=== PATIENT | female | born 1985 | race Caucasian/White ===

== ENCOUNTER 2019-04-20 21:52 | Emergency (ER) | payer OTHER ==
[2019-04-20 22:42] VITALS: BMI 46.5
[2019-04-21] MEDS ORDERED: SODIUM CHLORIDE 0.9% 500 ML INFUS.BAG IV ONE (00:07)
[2019-04-21] MEDS ORDERED: ONDANSETRON 4 MG/2 ML VIAL IVPUSH ONE (00:07)
[2019-04-21] MEDS ORDERED: ACETAMINOPHEN 1000 MG/100 ML VIAL (NON FORMULARY) IVPB ONE (00:07)
--- NOTE | 2019-04-21 00:08 | PDOC ---
History of Present Illness <Bijal Dawkins - Last Filed: 04/21/19 02:04> - History of Present Illness Initial Comments: Ms. Saini is a 33 y/o female with PMH significant for asthma presenting today with epigastric abdominal pain, nausea and vomiting x5, chills without fever. She has been having this pain for several years now. Reports that she was told she had gallstones at [facility] and given a referral for a surgeon, but never followed up. She started having abdominal pain, nausea, and vomiting again over the past couple of days. Did not eat anything for dinner but had cheese for breakfast. Describes the pain as sharp and intermittent. No chest pain/shortness of breath. No dysuria/diarrhea. No leg swelling. <Ruperto Newman - Last Filed: 04/21/19 22:30> - General Chief Complaint: Pain Stated Complaint: PAIN Time Seen by Provider: 04/20/19 22:44 Past History <JuanchoBijalgilberto Sheth - Last Filed: 04/21/19 02:04> - Past Medical History Asthma: Yes (last attack 8 months ago no meds) Cancer: No Cardiac Disorders: No COPD: No Diabetes: No HTN: No Seizures: No Thyroid Disease: No - Reproductive History (#): 1 Para: 0 Therapeutic (s) & number: Yes (1) Spontaneous : 0 - Psycho Social/Smoking Cessation Hx Smoking Status: No Smoking History: Never smoked Years of Tobacco Use: 0 Number of Cigarettes Smoked Daily: 0 Cigars Per Day: 0 Hx Alcohol Use: No Drug/Substance Use Hx: No Substance Use Type: None Hx Substance Use Treatment: No <Ruperto Newman - Last Filed: 04/21/19 22:30> - Past Medical History Allergies/Adverse Reactions: Allergies Allergy/AdvReac Type Severity Reaction Status Date / Time No Known Allergies Allergy Verified 04/12/14 01:29 Home Medications: Ambulatory Orders Vitamins (Sjr) - 1 tab PO DAILY 04/12/14 Abd/GI Specific PMHX - Complaint Specific PMHX GERD: No GI Ulcer Disease: No <Ruperto Newman - Last Filed: 04/21/19 22:30> Review of Systems - Review of Systems Comments:: GENERAL/CONSTITUTIONAL: No fever. Reports chills. No weakness._ HEAD, EYES, EARS, NOSE AND THROAT: No change in vision. No change in hearing. No sore throat._ CARDIOVASCULAR: No chest pain or shortness of breath_ RESPIRATORY: Denies cough, hemoptysis_ GASTROINTESTINAL: Reports abdominal pain, nausea, vomiting. GENITOURINARY: No dysuria, frequency, or change in urination._ MUSCULOSKELETAL: No joint or muscle swelling or pain. No neck or back pain._ SKIN: No rash_ NEUROLOGIC: No headache, vertigo, loss of consciousness, or change in strength/ sensation._ ENDOCRINE: No increased thirst. No abnormal weight change_ HEMATOLOGIC/LYMPHATIC: No anemia, easy bleeding, or history of blood clots._ ALLERGIC/IMMUNOLOGIC: No hives or skin allergy._ <Ruperto Newman - Last Filed: 04/21/19 22:30> *Physical Exam - Vital Signs Last Vital Signs Temp Pulse Resp BP Pulse Ox 98.1 F 91 H 20 135/78 100 04/20/19 22:30 04/20/19 22:30 04/20/19 22:30 04/20/19 22:30 04/20/19 22:30 <Bijal Dawkins - Last Filed: 04/21/19 02:04> - Vital Signs Last Vital Signs Temp Pulse Resp BP Pulse Ox 98.1 F 91 H 20 135/78 100 04/20/19 22:30 04/20/19 22:30 04/20/19 22:30 04/20/19 22:30 04/20/19 22:30 - Physical Exam GENERAL: Awake, alert, and oriented to person/place/time, in no acute distress_ HEAD: No signs of trauma, normoc ephalic, atraumatic _ EYES: PERRLA, EOMI, sclera anicteric, conjunctiva clear_ ENT: Hearing grossly normal, nares patent, oropharynx clear without exudates. No uvular deviation. Moist mucosa_ NECK: Normal ROM, supple, no lymphadenopathy, JVD, or masses_ LUNGS: No distress, speaks in full sentences, clear to auscultation bilaterally _ HEART: Regular rate and rhythm, normal S1 and S2, no murmurs appreciated, peripheral pulses normal and equal bilaterally._ ABDOMEN: Soft, epigastric TTP, normoactive bowel sounds. No guarding, no rebound. No masses_ EXTREMITIES: Normal inspection, Normal range of motion, no edema. No clubbing or cyanosis_ NEUROLOGICAL: Cranial nerves II through XII grossly intact. Normal speech, normal gait, no focal sensorimotor deficits _ SKIN: Warm, Dry, normal turgor, no rashes or lesions noted_ <Ruperto Newman - Last Filed: 04/21/19 22:30> ED Treatment Course - LABORATORY CBC & Chemistry Diagram: 04/21/19 00:40 04/21/19 00:40 - RADIOLOGY Radiology Studies Ordered: Category Date Time Status CHEST PA & LAT [RAD] Stat Radiology 04/20/19 23:24 Taken ABDOMEN US -LIMITED [US] Stat Ultrasound 04/20/19 23:57 Ordered <Ruperto Newman - Last Filed: 04/21/19 22:30> Medical Decision Making - Medical Decision Making 04/21/19 00:14 33F hx of asthma presenting with abdominal pain, nausea, vomiting today. Hx of cholelithiasis. -cbc, cmp -ekg, trop, cxr -US abd -upreg, ua, ucx 04/21/19 00:36 EKG shows NSR, 76 bpm, no ST elevation/depression, QTc 452, no axis deviation. 04/21/19 0300 Labs reviewed. Will plan to obtain CT abd w/ pelvis and US abd in the morning. Laboratory Tests 04/21/19 04/21/19 04/21/19 00:40 00:40 00:40 WBC 13.1 H RBC 4.41 Hgb 11.5 Hct 36.7 D MCV 83.2 MCH 26.1 MCHC 31.4 L RDW 14.0 Plt Count 299 D MPV 9.7 Absolute Neuts (auto) 10.2 H Neutrophils % 77.6 Lymphocytes % 17.1 D Monocytes % 4.3 Eosinophils % 0.6 Basophils % 0.4 Nucleated RBC % 0 Sodium 145 Potassium 3.2 L Chloride 114 H Carbon Dioxide 26 Anion Gap 5 L BUN 9.6 Creatinine 0.4 L Est GFR (CKD-EPI)AfAm 160.86 Est GFR (CKD-EPI)NonAf 138.79 Random Glucose 68 L Calcium 7.2 L Total Bilirubin 0.3 AST 11 L ALT 13 Alkaline Phosphatase 56 Creatine Kinase 116 Troponin I < 0.02 Total Protein 5.7 L Albumin 2.6 L Lipase Urine Color Urine Appearance Urine pH Ur Specific [place] Urine Protein Urine Glucose (UA) Urine Ketones Urine Blood Urine Nitrite Urine Bilirubin Urine Urobilinogen Ur Leukocyte Esterase Urine HCG, Qual 04/21/19 04/21/19 04/21/19 00:40 00:40 00:40 WBC RBC Hgb Hct MCV MCH MCHC RDW Plt Count MPV Absolute Neuts (auto) Neutrophils % Lymphocytes % Monocytes % Eosinophils % Basophils % Nucleated RBC % Sodium Potassium Chloride Carbon Dioxide Anion Gap BUN Creatinine Est GFR (CKD-EPI)AfAm Est GFR (CKD-EPI)NonAf Random Glucose Calcium Total Bilirubin AST ALT Alkaline Phosphatase Creatine Kinase Troponin I Total Protein Albumin Lipase 85 Urine Color Yellow Urine Appearance Clear Urine pH 8.0 D Ur Specific [place] 1.022 Urine Protein Negative Urine Glucose (UA) Negative Urine Ketones Negative Urine Blood Negative Urine Nitrite Negative Urine Bilirubin Negative Urine Urobilinogen 0.2 Ur Leukocyte Esterase Negative Urine HCG, Qual Negative 04/21/19 07:00 Pt signed out to Dr. Elen Guerrero. <Ruperto Newman - Last Filed: 04/21/19 22:30> Discharge <Bijal Dawkins - Last Filed: 04/21/19 02:04> - Discharge Information Problems reviewed: Yes - Admission No <Ruperto Newman - Last Filed: 04/21/19 22:30> - Discharge Information Clinical Impression/Diagnosis: Gallstone Qualifiers: Cholecystitis presence: without cholecystitis Biliary obstruction: without biliary obstruction Qualified Code(s): K80.20 - Calculus of gallbladder without cholecystitis without obstruction Condition: Stable Disposition: HOME - Follow up/Referral Referrals: Tina Quiñonez MD [Staff Physician] - Estrella Cleveland MD [Staff Physician] - Tyler Mayo MD [Staff Physician] - - Patient Discharge Instructions Patient Printed Discharge Instructions: DI for Gallstones Additional Instructions: Gallstones are stones in the gallbladder that can block the gallbladder from draining bile. This pain is usually located on the right side under your rib cage. This pain can radiate to the back or right shoulder. You can also develop nausea & vomiting. Rare complications that can occur include infections, gallbladder tears, and pancreas inflammation. You can help prevent gallstone formation by keeping a healthy weight - overweight people are more likely to get gallstones. However, losing weight too quickly can lead to gallstone formation so speak with your doctor before starting any dietary regimen. 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 Please return to the ED if you have severe pain not controlled with over the counter medications, have severe nausea/ vomiting, or experience other very concerning symptoms. - Post Discharge Activity Work/Back to School Note: Back to Work
[2019-04-21 02:21] LABS: BASO % 0.4 % (0-2.0); EOS % 0.6 % (0-4.5); HEMATOCRIT 36.7 % (32.4-45.2); HEMOGLOBIN 11.5 GM/dL (10.7-15.3); LYMPH % 17.1 % (8-40); MCH 26.1 pg (25.7-33.7); MCHC 31.4 g/dl (32.0-36.0); MEAN CELL VOLUME 83.2 fl (80-96); MEAN PLT VOLUME 9.7 fl (7.5-11.1); MONO % 4.3 % (3.8-10.2); NEUT % 77.6 % (42.8-82.8); PLATELET COUNT 299 K/MM3 (134-434); RBC 4.41 M/mm3 (3.60-5.2); WHITE BLOOD COUNT 13.1 K/mm3 (4.0-10.0)
[2019-04-21 02:22] LABS: URINE APPEARANCE CLEAR; URINE BILIRUBIN NEGATIVE (NEGATIVE); URINE COLOR YELLOW; URINE GLUCOSE (UA) NEGATIVE (NEGATIVE); URINE KETONE NEGATIVE (NEGATIVE); URINE LEUK ESTERASE NEGATIVE (NEGATIVE); URINE NITRITE NEGATIVE (NEGATIVE); URINE PROTEIN NEGATIVE (NEGATIVE); URINE UROBILINOGEN 0.2 mg/dL (0.2-1.0)
[2019-04-21] MEDS ORDERED: ACETAMINOPHEN INJECTION 100 ML IVPB ONE (03:00)
[2019-04-21] MEDS ORDERED: ONDANSETRON 4 MG/2 ML VIAL ONE (03:00)
[2019-04-21 03:01] LABS: ALBUMIN 2.6 g/dl (3.4-5.0); BILIRUBIN,TOTAL 0.3 mg/dL (0.2-1); BLOOD UREA NITROGEN 9.6 mg/dL (7-18); CALCIUM 7.2 mg/dL (8.5-10.1); CREATININE 0.4 mg/dL (0.55-1.3); POTASSIUM 3.2 mmol/L (3.5-5.1); TOT PROT 5.7 g/dl (6.4-8.2)
--- NOTE | 2019-04-21 07:21 | PDOC ---
*Physical Exam - Vital Signs Last Vital Signs Temp Pulse Resp BP Pulse Ox 98.1 F 91 H 20 135/78 100 04/20/19 22:30 04/20/19 22:30 04/20/19 22:30 04/20/19 22:30 04/20/19 22:30 ED Treatment Course - LABORATORY CBC & Chemistry Diagram: 04/21/19 00:40 04/21/19 00:40 - ADDITIONAL ORDERS Additional order review: Laboratory Results 04/21/19 04/21/19 04/21/19 00:40 00:40 00:40 Sodium Potassium Chloride Carbon Dioxide Anion Gap BUN Creatinine Est GFR (CKD-EPI)AfAm Est GFR (CKD-EPI)NonAf Random Glucose Calcium Total Bilirubin AST ALT Alkaline Phosphatase Creatine Kinase Troponin I Total Protein Albumin Lipase 85 Urine Color Yellow Urine Appearance Clear Urine pH 8.0 D Ur Specific [place] 1.022 Urine Protein Negative Urine Glucose (UA) Negative Urine Ketones Negative Urine Blood Negative Urine Nitrite Negative Urine Bilirubin Negative Urine Urobilinogen 0.2 Ur Leukocyte Esterase Negative Urine HCG, Qual Negative 04/21/19 04/21/19 00:40 00:40 Sodium 145 Potassium 3.2 L Chloride 114 H Carbon Dioxide 26 Anion Gap 5 L BUN 9.6 Creatinine 0.4 L Est GFR (CKD-EPI)AfAm 160.86 Est GFR (CKD-EPI)NonAf 138.79 Random Glucose 68 L Calcium 7.2 L Total Bilirubin 0.3 AST 11 L ALT 13 Alkaline Phosphatase 56 Creatine Kinase 116 Troponin I < 0.02 Total Protein 5.7 L Albumin 2.6 L Lipase Urine Color Urine Appearance Urine pH Ur Specific [place] Urine Protein Urine Glucose (UA) Urine Ketones Urine Blood Urine Nitrite Urine Bilirubin Urine Urobilinogen Ur Leukocyte Esterase Urine HCG, Qual 04/21/19 00:40 RBC 4.41 MCV 83.2 MCHC 31.4 L RDW 14.0 MPV 9.7 Neutrophils % 77.6 Lymphocytes % 17.1 D Monocytes % 4.3 Eosinophils % 0.6 Basophils % 0.4 - Medications Given in the ED: ED Medications Discontinued Medications Generic Name Dose Route Start Last Admin Trade Name Freq PRN Reason Stop Dose Admin Acetaminophen 1,000 mg 04/21/19 00:07 04/21/19 03:29 Ofirmev Injection - IVPB 04/21/19 00:08 1,000 mg ONCE ONE Administration Ondansetron HCl 4 mg 04/21/19 00:07 04/21/19 03:29 Zofran Injection IVPUSH 04/21/19 00:08 4 mg ONCE ONE Administration Sodium Chloride 1,000 ml 04/21/19 00:07 04/21/19 03:29 Normal Saline - IV 04/21/19 00:08 1,000 ml ONCE ONE Administration Medical Decision Making - Medical Decision Making 04/21/19 07:19 33 y/o F hx of cholelithaiasis a few months ago referred to surgery at that time not yet done presenting with epigastric pain last meal hard cheese 24 hours ago chills, no fever, NBNB emesis x5 with nausea pending Abdomen CT with iv contrast. RUQ u/s 04/21/19 09:10 CT abdomen/pelvis -Left nephrolithiasis with no evidence of obstructive uropathy -right ovarian dermoid cyst with no acute pathology within the abdomen/pelvis, bulky uterus, leiomyomata cannot be excluded. 04/21/19 09:57 RUQ U/S -cholelithiasis without evidence of cholecystitis or cute pathology. Discharge - Discharge Information Problems reviewed: Yes Clinical Impression/Diagnosis: Gallstone Qualifiers: Cholecystitis presence: without cholecystitis Biliary obstruction: without biliary obstruction Qualified Code(s): K80.20 - Calculus of gallbladder without cholecystitis without obstruction Condition: Stable Disposition: HOME - Admission No - Follow up/Referral Referrals: Tyler Mayo MD [Staff Physician] - Estrella Cleveland MD [Staff Physician] - Tina Quiñonez MD [Staff Physician] - - Patient Discharge Instructions Patient Printed Discharge Instructions: DI for Gallstones Additional Instructions: Gallstones are stones in the gallbladder that can block the gallbladder from draining bile. Please call your doctor if you develop severe stomach pain. This pain is usually located on the right side under your rib cage. This pain can radiate to the back or right shoulder. You can also develop nausea & vomiting. Rare complications that can occur include infections, gallbladder tears, and pancreas inflammation. You can help prevent gallstone formation by keeping a healthy weight - overweight people are more likely to get gallstones. However, losing weight too quickly can lead to gallstone formation so speak with your doctor before starting any dietary regimen. 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 - Post Discharge Activity Work/Back to School Note: Back to Work
[2019-04-21 10:20] VITALS: BP 124/80; PULSE 83; TEMP 98.6
--- NOTE | 2019-04-21 11:29 | EKG ---
Test Reason : Blood Pressure : / mmHG Vent. Rate : 076 BPM Atrial Rate : 076 BPM P-R Int : 134 ms QRS Dur : 086 ms QT Int : 402 ms P-R-T Axes : 001 003 009 degrees QTc Int : 452 ms NORMAL SINUS RHYTHM CANNOT RULE OUT ANTERIOR INFARCT , AGE UNDETERMINED ABNORMAL ECG NO PREVIOUS ECGS AVAILABLE Confirmed by Ruperto Tristan MD ([id number]) on 04/21/2019 11:28:34 AM Referred By: Confirmed By:Ruperto Tristan MD
--- NOTE | 2019-04-26 17:33 | PDOC ---
Documentation entered by Nelda Brannon SCRIBE, acting as scribe for Bijal Dawkins MD. Bijal Dawkins MD: This documentation has been prepared by the Salud carreon Brenda, SCRIBE, under my direction and personally reviewed by me in its entirety. I confirm that the documentation accurately reflects all work, treatment, procedures, and medical decision making performed by me. Attending Attestation - Resident Resident Name: Ruperto Newman - ED Attending Attestation I have performed the following: I have examined & evaluated the patient, The case was reviewed & discussed with the resident, I agree w/resident's findings & plan, Exceptions are as noted - HPI HPI: 04/21/19 01:39 The patient is a 33 year old female with a significant PMH of asthma who presents to the ED for evaluation of an onset of a chronic sharp epigastric abdominal pain that went away and came back, along with nausea and vomiting for 5 days. Patient reports the abdominal pain is chronic for the past several years , she notes she was told she had gallstones at [facility] however never followed up. Patient reports not eating anything for dinner. The patient denies chest pain, shortness of breath, headache and dizziness. Denies fever, chills, diarrhea and constipation. Denies dysuria, frequency, urgency and hematuria. Allergies: NKA Social history: No reported hx of tobacco use, alcohol use or illicit drug use. - Physicial Exam PE: 04/20/19 23:29 GENERAL: Awake, alert, and fully oriented, in no acute distress HEAD: No signs of trauma EYES: PERRLA, EOMI, sclera anicteric, conjunctiva clear ENT: Auricles normal inspection, hearing grossly normal, nares patent, oropharynx clear without exudates. Moist mucosa NECK: Normal ROM, supple, no lymphadenopathy, JVD, or masses LUNGS: Breath sounds equal, clear to auscultation bilaterally. No wheezes, and no crackles HEART: Regular rate and rhythm, normal S1 and S2, no murmurs, rubs or gallops ABDOMEN: Soft, nontender, normoactive bowel sounds. No guarding, no rebound. No masses EXTREMITIES: Normal range of motion, no edema. No clubbing or cyanosis. No cords, erythema, or tenderness NEUROLOGICAL: Cranial nerves II through XII grossly intact. Normal speech, normal gait SKIN: Warm, Dry, normal turgor, no rashes or lesions noted. - Medical Decision Making 04/26/19 17:32 Patient did have imaging studies that showed cholelithiasis with no evidence of acute cholecystitis, no obstruction Patient was referred to Dr. Mayo Imaging studies did show dermoid cyst and she was referred to Dr. Cleveland Patient discharged home
== END 2019-04-21 10:19 | disposition home or self-care (01) ==
LOC: JER 21:52
PROC: 3E033NZ Introduction of Analgesics, Hypnotics, Sedatives into Peripheral Vein, Percutaneous Approach (ICD-10-PCS; principal; 2019-04-20)
PROC: 3E033GC Introduction of Other Therapeutic Substance into Peripheral Vein, Percutaneous Approach (ICD-10-PCS; 2019-04-20)
DX: K80.20 Calculus of gallbladder without cholecystitis without obstruction (principal); N20.0 Calculus of kidney; N83.201 Unspecified ovarian cyst, right side; Z87.09 Personal history of other diseases of the respiratory system
CPT/HCPCS: 36415; 71046-TC-FY; 74177-TC; 76705-TC; 80053; 81003; 82550; 83690; 84484; 84703; 85025; 87086; 93005; 93010; 96374; 96375; 99283-25; J0131; Q9967

== ENCOUNTER → 2020-11-24 | Emergency (ER) | payer OTHER ==
[2020-11-24 02:39] VITALS: BP 122/81; PULSE 86; TEMP 98; BMI 49.6
== END ==
LOC: JER 01:22
DX: R10.30 Lower abdominal pain, unspecified (principal)
CPT/HCPCS: 99281-25

== ENCOUNTER 2021-01-02 04:12 | Day surgery (SDC) | payer OTHER ==
[2020-12-29 15:47] VITALS: BMI 49.1
[2021-01-02] MEDS ORDERED: PROPOFOL 20 ML ONE ×2 (07:31→08:10)
[2021-01-02] MEDS ORDERED: MIDAZOLAM HCL 2 MG/2 ML SINGLE DOSE VIAL ONE (08:01)
[2021-01-02 10:01] VITALS: BP 128/82; PULSE 75; TEMP 97.1
== END 2021-01-02 09:40 | disposition home or self-care (01) ==
LOC: JASU-SURG 04:12
PROVIDERS: ATTEND Urology
PROC: 0TF3XZZ Fragmentation in Right Kidney Pelvis, External Approach (ICD-10-PCS; principal; 2021-01-02 08:00)
DX: N20.0 Calculus of kidney (principal)
CPT/HCPCS: 81025

== ENCOUNTER 2021-01-30 04:51 | Day surgery (SDC) | payer OTHER ==
[2021-01-26 15:14] VITALS: BMI 49.9
[2021-01-30] MEDS ORDERED: ACETAMINOPHEN 325 MG TABLET (FP) PO ONE (10:30)
[2021-01-30 11:12] VITALS: BP 135/70; PULSE 72; TEMP 97.7
== END 2021-01-30 11:16 | disposition home or self-care (01) ==
LOC: JASU-SURG 04:51
PROVIDERS: ATTEND Urology
PROC: 0TF4XZZ Fragmentation in Left Kidney Pelvis, External Approach (ICD-10-PCS; principal; 2021-01-30 09:00)
DX: N20.0 Calculus of kidney (principal)
CPT/HCPCS: 81025

== ENCOUNTER 2022-04-04 10:20 | Emergency (ER) | payer OTHER ==
[2022-04-04 10:42] VITALS: BP 156/93; PULSE 89; RESP 18; TEMP 98.7; BMI 51.5
== END 2022-04-04 13:33 | disposition home or self-care (01) ==
LOC: JER 10:20
DX: M79.661 Pain in right lower leg (principal); M79.662 Pain in left lower leg
CPT/HCPCS: 93970-TC; 99283-25

== ENCOUNTER 2022-08-07 12:33 | Emergency (ER) | payer OTHER ==
[2022-08-07 12:46] VITALS: TEMP 97.8; BMI 44.3
[2022-08-07] MEDS ORDERED: MAG HYDROX/AL HYDROX/SIMETH 30 ML UNIT-DOSE CUP PO ONE (13:21)
[2022-08-07] MEDS ORDERED: FAMOTIDINE 20 MG/50 ML IVPB 20 MG/50 ML MG IVPB ONE ×2 (13:21→13:57)
[2022-08-07] MEDS ORDERED: ACETAMINOPHEN 1000 MG/100 ML BAG IVPB ONE (13:21)
[2022-08-07] MEDS ORDERED: SODIUM CHLORIDE 0.9% 500 ML INFUS.BAG IV ONE (13:21)
[2022-08-07] MEDS ORDERED: MAG HYDROX/AL HYDROX/SIMETH 30 ML UNIT-DOSE CUP ONE (13:57)
[2022-08-07] MEDS ORDERED: ACETAMINOPHEN INJECTION 100 ML IVPB ONE (13:57)
[2022-08-07 15:03] LABS: PH,URINE 6.5 (5.0-8.0); URINE APPEARANCE CLEAR; URINE BILIRUBIN NEGATIVE (NEGATIVE); URINE COLOR YELLOW; URINE GLUCOSE (UA) NEGATIVE (NEGATIVE); URINE KETONE TRACE (NEGATIVE); URINE LEUK ESTERASE NEGATIVE (NEGATIVE); URINE NITRITE NEGATIVE (NEGATIVE); URINE PROTEIN NEGATIVE (NEGATIVE); URINE UROBILINOGEN 0.2 mg/dL (0.2-1.0)
[2022-08-07 15:05] LABS: BASO % 0.5 % (0-2.0); EOS % 1.4 % (0-4.5); HEMATOCRIT 35.3 % (32.4-45.2); HEMOGLOBIN 11.5 GM/dL (10.7-15.3); LYMPH % 21.2 % (8-40); MCH 25.5 pg (25.7-33.7); MCHC 32.5 g/dl (32.0-36.0); MEAN CELL VOLUME 78.5 fl (80-96); MEAN PLT VOLUME 9.2 fl (7.5-11.1); MONO % 4.5 % (3.8-10.2); NEUT % 72.4 % (42.8-82.8); PLATELET COUNT 284 10^3/uL (134-434); RBC 4.49 M/mm3 (3.60-5.2); RDW 14.5 % (11.6-15.6); WHITE BLOOD COUNT 10.9 K/mm3 (4.0-10.0)
[2022-08-07 15:21] LABS: POTASSIUM 4.5 mmol/L (3.5-5.1)
[2022-08-07 15:23] LABS: ALBUMIN 3.3 g/dl (3.4-5.0); BLOOD UREA NITROGEN 12.3 mg/dL (7-18); CALCIUM 9.2 mg/dL (8.5-10.1); MAGNESIUM 1.9 mg/dL (1.8-2.4)
[2022-08-07 15:26] LABS: CREATININE 0.6 mg/dL (0.55-1.3)
[2022-08-07 15:28] LABS: BILIRUBIN,TOTAL 0.3 mg/dL (0.2-1); TOT PROT 7.3 g/dl (6.4-8.2)
[2022-08-07] MEDS ORDERED: ONDANSETRON 4 MG/2 ML VIAL IVPUSH ONE (16:47)
[2022-08-07] MEDS ORDERED: ONDANSETRON 4 MG/2 ML VIAL ONE (16:55)
[2022-08-07 18:38] VITALS: BP 147/84; PULSE 100; RESP 16
== END 2022-08-07 18:42 | disposition home or self-care (01) ==
LOC: JER 12:33
PROC: 3E033GC Introduction of Other Therapeutic Substance into Peripheral Vein, Percutaneous Approach (ICD-10-PCS; principal; 2022-08-07)
PROC: 3E033GC Introduction of Other Therapeutic Substance into Peripheral Vein, Percutaneous Approach (ICD-10-PCS; 2022-08-07)
PROC: 3E033GC Introduction of Other Therapeutic Substance into Peripheral Vein, Percutaneous Approach (ICD-10-PCS; 2022-08-07)
DX: R07.2 Precordial pain (principal); Z20.822 Contact with and (suspected) exposure to COVID-19
CPT/HCPCS: 0241U-QW; 36415; 71045-TC-FY; 71275-TC; 80053; 81003; 83690; 83735; 84443; 84484; 84703; 85025; 85379; 87086; 93005; 93010; 99285-25; Q9967